=== PATIENT | female | born 1950 | race Caucasian/White ===

== ENCOUNTER → 2019-02-05 11:23 | Outpatient (CLI) | payer MEDICARE, OTHER, SELFPAY ==
--- NOTE | 2019-02-05 | DI.MG.S_ITS ---
BILATERAL DIGITAL SCREENING MAMMOGRAM 3D/2D WITH CAD: 02/05/2019 CLINICAL: Routine screening. Comparison is made to exams dated: 10/30/2013 mammogram, 12/13/2003 mammogram, and 06/03/2001 mammogram - [facility]. There are scattered fibroglandular elements in both breasts. Current study was also evaluated with a Computer Aided Detection (CAD) system. No significant masses, calcifications, or other findings are seen in either breast. There has been no significant interval change. IMPRESSION: NEGATIVE There is no mammographic evidence of malignancy. A 1 year screening mammogram is recommended. This exam was interpreted at Station ID: [id number]. NOTE: For mammograms, a report in lay terms will be sent to the patient. Approximately 15% of breast malignancies will not be visualized mammographically. In the management of a palpable breast mass, a negative mammogram must not discourage biopsy of a clinically suspicious lesion. Electronically Signed By: Loco [email or web address]/piyush:02/06/2019 12:47:32 letter sent: Normal Exam ACR BI-RADS Category 1: Negative 3341F
== END ==
PROVIDERS: PCP Family Medicine; Visit Provider Family Medicine
DX: Z12.31 Encounter for screening mammogram for malignant neoplasm of breast (principal)
CPT/HCPCS: 77063; 77067

== ENCOUNTER → 2020-09-23 09:51 | Outpatient (CLI) | payer MEDICARE, OTHER, SELFPAY ==
[2020-09-23 19:42] LABS: Add Manual Diff / Slide Review NO; Basophils Absolute Auto 0 /uL (0-100); Basophils Percent Auto 0.4 % (0-2); Eosinophils Absolute Auto 100 /uL (0-450); Eosinophils Percent Auto 1.7 % (2-4); Hematocrit 43.9 % (36-46); Hemoglobin 14.6 g/dL (12.0-16.0); Lymphocytes Absolute Auto 1900 /uL (1100-4500); Lymphocytes Percent Auto 36.4 % (25-40); Mean Corpuscular HGB Conc 33.2 % (30-36); Mean Corpuscular Hemoglobin 30.2 PG (26-34); Monocytes Absolute Auto 400 /uL (0-900); Monocytes Percent Auto 6.7 % (3-14); Neutrophils Absolute Auto 2900 /uL (1500-7000); Neutrophils Percent Auto 54.8 % (50-75); Platelet Count 268 X10^3/uL (150-400); Red Blood Cell Count 4.82 X10^6/uL (4.0-5.2); White Blood Cell Count 5.3 X10^3/uL (4.5-11.0)
[2020-09-23 19:54] LABS: Alanine Aminotransferase 20 IU/L (<35); Albumin 3.9 g/dL (3.5-5.0); Albumin Globulin Ratio 1.4 (1.0-2.8); Alkaline Phosphatase 81 U/L (38-126); Aspartate Aminotransferase 26 IU/L (14-36); BUN Creatinine Ratio 23.5 (6-22); Bilirubin Total 0.5 mg/dL (0.2-1.3); Blood Urea Nitrogen 16 mg/dL (7-17); Calcium 9.4 mg/dL (8.4-10.2); Carbon Dioxide 28 mmol/L (22-32); Chloride 107 mmol/L (98-107); Cholesterol 205 mg/dL (140-199); Estimated Glomerular Filt Rate > 60.0 mL/min (>60); Globulin 2.7 g/dL (1.7-4.1); Glucose 99 mg/dL (80-110); HDL Cholesterol 72 mg/dL (40-60); HEMOLYSIS < 15 (0-50); LDL Cholesterol Calculated 102 mg/dL (<100); Potassium 4.3 mmol/L (3.4-5.1); Sodium 140 mmol/L (137-145); Total Protein 6.6 g/dL (6.3-8.2); Triglycerides 153 mg/dL (35-150)
[2020-09-23 20:01] LABS: Hemoglobin A1C% w Est Avg Glu 5.9 % (4.0-6.0)
== END ==
PROVIDERS: PCP Physician Assistant; Referring Provider Physician Assistant; Visit Provider Physician Assistant
DX: E78.5 Hyperlipidemia, unspecified (principal); R06.2 Wheezing; R73.9 Hyperglycemia, unspecified
CPT/HCPCS: 80053; 80061; 83036; 85025

== ENCOUNTER → 2020-12-06 11:34 | Outpatient (CLI) | payer MEDICARE, OTHER, SELFPAY ==
--- NOTE | 2020-12-06 11:37 | DI.MG.S_ITS ---
BILATERAL DIGITAL SCREENING MAMMOGRAM 3D/2D WITH CAD: 12/06/2020 CLINICAL: Routine screening. Comparison is made to exam dated: 02/05/2019 [facility]. There are scattered fibroglandular elements in both breasts. Current study was also evaluated with a Computer Aided Detection (CAD) system. No significant masses, calcifications, or other findings are seen in either breast. There has been no significant interval change. IMPRESSION: NEGATIVE There is no mammographic evidence of malignancy. A 1 year screening mammogram is recommended. This exam was interpreted at Station ID: [id number]. NOTE: For mammograms, a report in lay terms will be sent to the patient. Approximately 15% of breast malignancies will not be visualized mammographically. In the management of a palpable breast mass, a negative mammogram must not discourage biopsy of a clinically suspicious lesion. Electronically Signed By: Leoncio alvarez/piyush:12/06/2020 12:24:52 letter sent: Normal Exam ACR BI-RADS Category 1: Negative 3341F
== END ==
PROVIDERS: PCP Physician Assistant; Referring Provider Physician Assistant; Visit Provider Physician Assistant
DX: Z12.31 Encounter for screening mammogram for malignant neoplasm of breast (principal)
CPT/HCPCS: 77063; 77067

== ENCOUNTER → 2022-04-05 11:13 | Outpatient (CLI) | payer MEDICARE, SELFPAY ==
[2022-04-05 14:21] LABS: COVID19 -Nasal RAPID Negative (Negative)
== END ==
PROVIDERS: PCP Physician Assistant; Visit Provider Surgery
DX: Z20.822 Contact with and (suspected) exposure to COVID-19 (principal); Z01.812 Encounter for preprocedural laboratory examination
CPT/HCPCS: 87635; C9803

== ENCOUNTER 2022-04-06 07:34 | Day surgery (SDC) | payer MEDICARE, SELFPAY ==
[2022-04-06] VITALS (7 sets, daily range): BP systolic 113–136; BP diastolic 61–75; PULSE 71–80; RESP 16–22; TEMP 36.1–36.5; O2SAT 97–100; BMI 28.9
[2022-04-06] MEDS: LACTATED RINGERS 1,000 ML 42 ML IV (08:19)
[2022-04-06] MEDS: SCOPOLAMINE 1 PATCH TOP (08:37)
--- NOTE | 2022-04-06 08:54 | PM.HP.1 ---
History of Present Illness History of Present Illness Chief complaint: [facility] [place] Narrative: Ms. Bass presents today for a screeing colonoscopy. She has had a colonoscopy previously about 5 or 6 years ago here at [facility]. To her memory there were about 3 polyps but no sign of cancer she had a good prep but she was not quite able to finish it. She is feeling pretty good this morning. She is had at least 5 colonoscopies in the past. She sometimes has emesis after the scope with the nurse here was very very good at helping her feel better after the colonoscopy last. She has no alarming symptoms she is not had bleeding from below she has regular bowel movements she does not have stomach pain. She is never had abdominal surgery. Her mother had colon cancer and was a smoker. Patient History Family & Social History Social History: household members none Tobacco & Substance use: Smoking Status Never smoker alcohol intake current alcohol intake frequency 0-2 drinks per day Substance Use Type does not use Meds Home Medications and Allergies Home Medications Medication Instructions Recorded Confirmed Type atorvastatin 20 mg tablet See Rx Instructions .Route 10/18/21 04/06/22 Rx .COMPLEX #90 tabs Allergies Allergy/AdvReac Type Severity Reaction Status Date / Time Penicillins [PENICILLINS] Allergy Unknown Verified 04/06/22 07:53 Exam Vital Signs (past 8 hours): - 04/06/22 08:13 Temperature 97.7 F Pulse Rate 80 Respiratory Rate 16 Blood Pressure 129/75 Pulse Oximetry 99 Oxygen Delivery Method Room Air Oxygen Delivery Method Room Air Const General: cooperative and healthy appearing Eyes General: appearance normal, both eyes and all related structures Resp Effort & Inspection: normal respiratory effort and able to speak in complete sentences Cardio Pulses: radial pulses present GI Palpation: soft and No tender Assessment & Plan Assessment and plan (1) Colon cancer screening: Status: Acute Assessment & Plan narrative: I discussed risks benefits and alternatives of a screening colonoscopy possible biopsy. Including but not limited to an incomplete exam requiring a referral for a more experienced endoscopist and perforation of the colon. She understands the risks and would like to proceed. Time Spent With Patient Critical Care time: I spent a total of [] minutes of critical care time on this patient's care today; this time is exclusive of procedural time.
[2022-04-06] MEDS: ACETAMINOPHEN 325 MG TABLET 650 MG PO (10:22)
[2022-04-06] MEDS: ONDANSETRON 4 MG ODT SL (10:22)
--- NOTE | 2022-04-06 10:43 | P.OP.COLON_ITS ---
Operative Date/Time/Diagnoses Date of procedure: 04/06/22 Procedure & Clinicians Indications: Colon cancer screening Surgeon: Mey Vega Procedure Notes Procedure in detail: Patient was taken to the endoscopy suite and placed in a left lateral decubitus position. Time-out was performed. Conscious sedation was induced with the help of anesthesiology provider. Digital rectal exam was performed there were no masses or strictures. Colonoscope was introduced into the anal canal and advanced; scope was easily advanced through to the cecum. A photograph of the appendiceal orifice was obtained. The colonoscope was then withdrawn slowly taking care to examine all the edges and folds of the mucosa. Prep was good, [place] bowel prep score was 2. Total withdrawal time was 19 minutes. There were no polyps seen. No biopsies were taken. There were scattered diverticula throughout the sigmoid colon. Recommended follow-up in the absence of any family history of colon cancer would be 10 years, but with history of mother with colon cancer recommendation is 5 years follow-up. Findings: divertiulosis Complications: none
== END 2022-04-06 11:00 | disposition home or self-care (01) ==
PROVIDERS: Surgery; PCP Physician Assistant; Referring Provider Surgery; Visit Provider Surgery
PROC: 0DJD8ZZ Inspection of Lower Intestinal Tract, Via Natural or Artificial Opening Endoscopic (ICD-10-PCS; CPT 45378; principal; 2022-04-06 08:45)
DX: Z12.11 Encounter for screening for malignant neoplasm of colon (principal); K57.30 Diverticulosis of large intestine without perforation or abscess without bleeding
CPT/HCPCS: G0121; J1885; J2405; J2704